=== PATIENT | male | born 1970 | race Caucasian/White ===

== ENCOUNTER 2019-12-20 14:56 | Emergency (ER) | payer BC ==
[2019-12-20] MEDS: Lidocaine 1% 30 ML SDV INJECT ONE (15:25)
--- NOTE | 2019-12-20 15:40 | EDM.PDOC ---
ED HPI GENERAL MEDICAL PROBLEM - General Chief Complaint: Laceration Stated Complaint: LACERATION TO L THUMB Time Seen by Provider: 12/20/19 15:13 Source of Information: Reports: Patient History Limitations: Reports: No Limitations - History of Present Illness INITIAL COMMENTS - FREE TEXT/NARRATIVE: Patient comes emergency department today with complaints of a laceration to his left thumb. Just prior to arrival the patient was preparing some food for dinner when he accidentally cut his left thumb. This happened just prior to arrival. He denies any paresthesias. His last tetanus immunization is 2014 by documentation on the online program. Any other injury other than to the laceration on his left thumb. Left Finger-Thumb Pain Score (Numeric/FACES): 2 - Related Data Allergies Allergy/AdvReac Type Severity Reaction Status Date / Time No Known Allergies Allergy Verified 12/20/19 15:12 Home Meds: Home Meds Fluticasone Propionate [Flonase Allergy Relief] 2 spray DAILY 12/20/19 [History] Past Medical History - Past Surgical History HEENT Surgical History: Reports: Oral Surgery Other HEENT Surgeries/Procedures: wisdom teeth removed Male Surgical History: Reports: Vasectomy Musculoskeletal Surgical History: Reports: Arthroscopic Knee Social & Family History - Tobacco Use Smoking Status *Q: Never Smoker - Alcohol Use Days Per Week of Alcohol Use: 3 Number of Drinks Per Day: 2 Total Drinks Per Week: 6 - Recreational Drug Use Recreational Drug Use: No ED ROS GENERAL - Review of Systems Review Of Systems: Comprehensive ROS is negative, except as noted in HPI. ED EXAM, SKIN/RASH Exam: See Below Exam Limited By: No Limitations General Appearance: Alert, WD/WN, No Apparent Distress Respiratory/Chest: No Respiratory Distress Cardiovascular: Normal Peripheral Pulses, Regular Rate, Rhythm Peripheral Pulses: 2+: Radial (L), Radial (R) Extremities: No: Normal Inspection (On the dorsal aspect of the left thumb traversing over the IP joint on the lateral side there is a 2 cm laceration that extends into the subcutaneous tissue. There is no foreign material or debris. The patient is able to flex and extend at the IP joint of the left thumb. As well as the end CP joint appropriately. CMS is intact appropriately. Small amount of oozing bleeding. Rest of the left hand is atraumatic.) Neurological: Alert, Oriented, Normal Cognition, No Motor/Sensory Deficits Psychiatric: Normal Affect, Normal Mood Skin: Warm, Dry, Intact, Normal Color ED SKIN PROCEDURES - Laceration/Wound Repair Left Dorsal Digit - 1st (Thumb) Appearance: Subcutaneous, Linear, Irregular Distal NVT: Neuro & Vascular Intact, No Tendon Injury Anesthetic Type: Local Local Anesthesia - Lidocaine (Xylocaine): 1% Plain Local Anesthetic Volume: 4cc Skin Prep: Chlorhexidine (Hibiciens), Saline Saline Irrigation (cc's): 30 Exploration/Debridement/Repair: Wound Explored, In a Bloodless Field, Explored to Base, Multiple Flaps Aligned Closed with: Sutures Lac/Wound length In cm: 2 Suture Size: 5-0 Suture Type: Nylon Sterile Dressing Applied: Nurse Tetanus Status Addressed: Yes Course - Vital Signs Last Recorded V/S: Last Vital Signs Temp 98.5 F 12/20/19 15:00 Pulse 77 12/20/19 15:00 Resp 16 12/20/19 15:00 BP 154/82 H 12/20/19 15:00 Pulse Ox 99 12/20/19 15:00 - Orders/Labs/Meds Meds: Medications Discontinued Medications Generic Name Dose Route Start Last Admin Trade Name Lori PRN Reason Stop Dose Admin Lidocaine HCl 30 ml 12/20/19 15:13 12/20/19 15:25 Xylocaine-Mpf 1% INJECT 12/20/19 15:14 30 ml ONETIME ONE Administration - Re-Assessments/Exams Free Text/Narrative Re-Assessment/Exam: 12/20/19 16:14 Please see the procedure note for the repair. The patient was also given a splint for his thumb to isolate his thumb to help with healing over the next couple of days. Departure - Departure Time of Disposition: 15:38 Disposition: Home, Self-Care 01 Clinical Impression: Laceration of thumb Qualifiers: Encounter type: initial encounter Damage to nail status: without damage Foreign body presence: without foreign body Laterality: left Qualified Code(s): S61.012A - Laceration without foreign body of left thumb without damage to nail, initial encounter - Discharge Information Instructions: Laceration Care, Adult, [id number] Forms: ED Department Discharge Additional Instructions: Cleanse wound twice daily with soap and water. Bacitracin and bandage until healed. Watch for signs of infection. Sutures out in 10 days. Return to the ED if new or worsening symptoms. Sepsis Event Note (ED) - Evaluation Sepsis Screening Result: No Definite Risk - Focused Exam Vital Signs: Vital Signs Temp Pulse Resp BP Pulse Ox 12/20/19 15:00 98.5 F 77 16 154/82 H 99
== END 2019-12-20 16:05 | disposition home or self-care (01) ==
LOC: VM.ED 14:56
DX: S61.012A Laceration without foreign body of left thumb without damage to nail, initial encounter (principal); W26.8XXA Contact with other sharp object(s), not elsewhere classified, initial encounter; Y93.G9 Activity, other involving cooking and grilling
CPT/HCPCS: 12001; 99282-25; 99283; J2001